=== PATIENT | female | born 1945 | race Caucasian/White ===

== ENCOUNTER → 2024-09-18 | Outpatient (CLI) | payer OTHER ==
[2024-09-18 23:24] VITALS: PULSE 58; RESP 20
[2024-09-19] VITALS (11 sets, daily range): PULSE 46–56; RESP 6–18
== END | disposition home or self-care (01) ==
LOC: SLP 20:36
PROVIDERS: ATTEND Internal Medicine
DX: G47.33 Obstructive sleep apnea (adult) (pediatric) (principal)
CPT/HCPCS: 95810

== ENCOUNTER → 2024-09-25 | Outpatient (CLI) | payer OTHER ==
[2024-09-25 22:00] VITALS: PULSE 56; RESP 22
[2024-09-25 22:30] VITALS: PULSE 58; RESP 24
[2024-09-25 23:00] VITALS: PULSE 52; RESP 18
[2024-09-25 23:30] VITALS: PULSE 50; RESP 16
[2024-09-26] VITALS (11 sets, daily range): PULSE 48–52; RESP 14–20
== END | disposition home or self-care (01) ==
LOC: EDUNIT# 20:30 → SLP 20:40
PROVIDERS: ATTEND Internal Medicine
DX: G47.33 Obstructive sleep apnea (adult) (pediatric) (principal)
CPT/HCPCS: 95811